=== PATIENT | female | born 1985 | race Caucasian/White ===

== ENCOUNTER 2017-04-30 11:15 | Emergency (ER) | payer MEDICAID ==
[2017-04-30 11:20] VITALS: BP 118/78
[2017-04-30] MEDS ORDERED: cloNIDine 0.1 MG TABLET PO STA (12:27)
[2017-04-30] MEDS ORDERED: LORazepam 2 MG/ML SYRINGE IM STA (12:27)
[2017-04-30] MEDS ORDERED: ONDANSETRON ODT 4 MG TABLET TL STA (12:28)
--- NOTE | 2017-04-30 12:30 | ED Physician Documentation ---
History of Present Illness - Stated complaint Stated Complaint: WITHDRAWAL - Chief complaint Chief Complaint: General - History obtained from History obtained from: Patient - History of Present Illness Timing: How many days ago (2) - Additonal information Additional information: 31-year-old female has been shooting heroin for 1-1/2 years she uses about 1 g per day. She has stopped 2 days ago and she is wanting to discontinue. She has developed some nausea and vomiting and diarrhea beginning early this morning and she was able to eat yesterday. Review of Systems Constitutional: reports: Fatigue, Sweats. denies: Fever, Chills Eyes: denies: Decreased vision Ears: denies: Ear pain Nose: denies: Rhinorrhea / runny nose, Congestion Throat: denies: Sore throat Cardiac: denies: Chest pain / pressure, Palpitations Respiratory: denies: Dyspnea, Cough GI: reports: Abdominal Pain, Nausea, Vomiting, Diarrhea : denies: Dysuria, Frequency Skin: denies: Rash Musculoskeletal: denies: Neck pain, Back pain, Extremity pain Neurologic: reports: Generalized weakness. denies: Focal weakness, Numbness PD PAST MEDICAL HISTORY - Present Medications Home Medications: Ambulatory Orders Medication Instructions Recorded Confirmed Lorazepam [Ativan] 1 - 2 mg PO Q6HR PRN #30 tablet 04/30/17 Ondansetron Odt [Zofran] 4 mg TL Q6H PRN #10 tablet 04/30/17 cloNIDine [Catapres] 0.1 mg PO BID #20 tablet 04/30/17 - Allergies Allergies/Adverse Reactions: Allergies Allergy/AdvReac Type Severity Reaction Status Date / Time Penicillins Allergy Hives Verified 04/30/17 11:20 Sulfa (Sulfonamide Allergy Hives Verified 04/30/17 11:20 Antibiotics) - Social History Does the pt smoke?: Yes Smoking Status: Current every day smoker Does the pt have substance abuse?: Yes Substance Use and Type: Heroin PD ED PE NORMAL - Vitals Vital signs reviewed: Yes (normal ) - General General: Well developed/nourished, Other (The patient appears concerned with publications writer tone. ) - HEENT HEENT: Atraumatic, PERRL, EOMI, Moist mucous membranes - Neck Neck: Supple, no meningeal sign, No bony TTP - Cardiac Cardiac: RRR, No murmur - Respiratory Respiratory: No respiratory distress - Abdomen Abdomen: Soft, Non tender - Back Back: No CVA TTP, No spinal TTP - Derm Derm: Normal color, Warm and dry, No rash - Extremities Extremities: No deformity, No edema - Neuro Neuro: No motor deficit, No sensory deficit - Psych Psych: Normal mood, Normal affect Results - Vitals Vitals: Vital Signs - 24 hr 04/30/17 11:18 Heart Rate 79 Respiratory 16 Rate Blood Pressure 118/78 O2 Saturation 100 Oxygen O2 Source Room air Procedures - IVC sono (time) 1220 Bedside IVC sono: IVC measures (cm) (1.72), IVC collapsed c insp (cm) (0.82), Euvolemia PD MEDICAL DECISION MAKING - ED course Complexity details: reviewed results, re-evaluated patient, considered differential, d/w patient, d/w family ED course: 31 y/o female With a history of heroin use is wanting to stop now and is in the early stages of withdrawal. Here in the emergency department she is administered Ativan 1 mg IM clonidine 0.1 and Zofran 4 mg p.o.By interrogation of the inferior vena cava the patient does not require IV fluids and IV is not begun. Departure - Departure Disposition: 01 Home, Self Care Clinical Impression: Acute narcotic withdrawal Condition: Stable Instructions: ED Withdrawal Narcotic Follow-Up: Your, doctor [Other] Prescriptions: Lorazepam [Ativan] 1 - 2 mg PO Q6HR PRN #30 tablet PRN Reason: withdrawal symptoms cloNIDine [Catapres] 0.1 mg PO BID #20 tablet Ondansetron Odt [Zofran] 4 mg TL Q6H PRN #10 tablet PRN Reason: Nausea / Vomiting
[2017-04-30] MEDS ORDERED: ONDANSETRON ODT 4 MG TABLET ONE (12:46)
[2017-04-30] MEDS ORDERED: LORazepam 2 MG/ML SYRINGE ONE (12:46)
[2017-04-30] MEDS ORDERED: cloNIDine 0.1 MG TABLET ONE (12:47)
== END 2017-04-30 13:05 | disposition home or self-care (01) ==
LOC: ED 11:15
DX: F11.23 Opioid dependence with withdrawal (principal); F17.200 Nicotine dependence, unspecified, uncomplicated
CPT/HCPCS: 96372; 99283; A9270; J2060; Q0162

== ENCOUNTER 2017-07-01 04:13 | Emergency (ER) | payer MEDICAID ==
[2017-07-01 04:25] VITALS: BP 112/46
[2017-07-01] MEDS ORDERED: LIDOCAINE 1% 2 ML VIAL ONE (04:39)
[2017-07-01] MEDS ORDERED: CLINDAMYCIN 150 MG CAPSULE PO STA (04:56)
[2017-07-01] MEDS ORDERED: CLINDAMYCIN 150 MG CAPSULE PO ONE (04:58)
--- NOTE | 2017-07-01 05:01 | ED Physician Documentation ---
PD HPI SKIN - Stated complaint Stated Complaint: FEMALE - Chief complaint Chief Complaint: Wound - History obtained from History obtained from: Patient, Friend - History of Present Illness Timing - onset: How many days ago (4) Timing - duration: Days (4) Timing - details: Gradual onset, Still present Location: RLE Quality / character: Painful, Raised, Swelling, Draining Associated symptoms: Myalgias. No: Fever Contributing factors: No: Recent illness Similar symptoms before: Diagnosis (abscess) Recently seen: Not recently seen - Additional information Additional information: 31-year-old female with a prior history of heroin use has an abscess to her right buttocks and she states this is been draining some foul-smelling yellow pus while she was in the shower yesterday she continues to have pain and swelling. She has not had fever. Review of Systems Constitutional: denies: Fever, Chills, Myalgias Nose: denies: Congestion Respiratory: denies: Cough GI: denies: Vomiting Skin: reports: Lesions Musculoskeletal: reports: Extremity pain, Extremity swelling. denies: Neck pain , Back pain Neurologic: denies: Generalized weakness, Focal weakness, Numbness PD PAST MEDICAL HISTORY - Past Medical History Past Medical History: Yes Endocrine/Autoimmune: Other Musculoskeletal: Other Other Past Medical History: buldging disk, fibromyglia - Past Surgical History Past Surgical History: Yes Ortho: Carpal Tunnel surgery /[employer]: section - Present Medications Home Medications: Ambulatory Orders Medication Instructions Recorded Confirmed Lorazepam [Ativan] 1 - 2 mg PO Q6HR PRN #30 tablet 04/30/17 07/01/17 Ondansetron Odt [Zofran] 4 mg TL Q6H PRN #10 tablet 04/30/17 07/01/17 cloNIDine [Catapres] 0.1 mg PO BID #20 tablet 04/30/17 07/01/17 Clindamycin [Cleocin] 300 mg PO Q6H #28 capsule 07/01/17 - Allergies Allergies/Adverse Reactions: Allergies Allergy/AdvReac Type Severity Reaction Status Date / Time Penicillins Allergy Hives Verified 07/01/17 04:25 Sulfa (Sulfonamide Allergy Hives Verified 07/01/17 04:25 Antibiotics) - Social History Does the pt smoke?: Yes Smoking Status: Current every day smoker Does the pt drink ETOH?: No Does the pt have substance abuse?: No - Immunizations Immunizations are current?: Yes - POLST Patient has POLST: No PD ED PE NORMAL - Vitals Vital signs reviewed: Yes (normal ) - General General: No acute distress, Well developed/nourished - HEENT HEENT: Atraumatic, PERRL - Respiratory Respiratory: No respiratory distress - Derm Derm: Normal color, Warm and dry, No rash - Extremities Extremities: No deformity, Other (in the right gluteal fold there is a firm 4cm erythematous mass without flucutance. The area is very tender. There are no open areas of drainage. The distal n/v is intact. ) - Neuro Neuro: No motor deficit, No sensory deficit - Psych Psych: Normal mood, Normal affect Results - Vitals Vitals: Vital Signs - 24 hr 07/01/17 04:20 Temperature 37.1 C Heart Rate 66 Respiratory 18 Rate Blood Pressure 112/46 L O2 Saturation 97 Oxygen O2 Source Room air Procedures - Bedside sono Bedside sono by EMP: With use of bedside ultrasound the area is examined and there is no area of fluid collection. There are septations consistent with cellulitis. PD MEDICAL DECISION MAKING - ED course Complexity details: reviewed old records, reviewed results, re-evaluated patient , considered differential, d/w patient, d/w family ED course: 31-year-old female with an abscess on her buttock on the right side does not appear to have ripening of her abscess at this point. I discussed with her the ripening phenomena and encouraged her to use a warm compress 2-3 times per day and take her antibiotic. She will return for fluctuance or worsening of symptoms. Departure - Departure Disposition: 01 Home, Self Care Clinical Impression: Abscess Condition: Stable Instructions: ED Staph Infec Abx Tx Only Follow-Up: [facility] [Provider Group] Prescriptions: Clindamycin [Cleocin] 300 mg PO Q6H #28 capsule
[2017-07-01] MEDS ORDERED: HYDROcod/ACET 5/325 Prepack 6 PO ONE ×2 (05:02→05:10)
== END 2017-07-01 05:10 | disposition home or self-care (01) ==
LOC: ED 04:13
DX: L02.31 Cutaneous abscess of buttock (principal); L03.317 Cellulitis of buttock; F17.200 Nicotine dependence, unspecified, uncomplicated
CPT/HCPCS: 99283; A9270

== ENCOUNTER 2017-07-16 15:20 | Emergency (ER) | payer MEDICAID ==
[2017-07-16] MEDS ORDERED: BUFFERED LIDOCAINE 10 ML SYRINGE SUBQ STA (15:45)
--- NOTE | 2017-07-16 15:48 | ED Physician Documentation ---
History of Present Illness - Stated complaint Stated Complaint: VOMITING/SWEATS - Chief complaint Chief Complaint: General - History obtained from History obtained from: Patient, Family - Additonal information Additional information: She has been under a lot of personal stress because of family issues lately. She was seen here 2 weeks ago for an abscess on her buttock, it was draining spontaneously which it no longer is doing. She was on clindamycin which she has completed. Over the last few days the abscess is still there, coming and going, but now she feels generally ill with nausea, headaches and bilateral eye pain, excessive fatigue. Review of Systems Constitutional: reports: Chills, Myalgias, Fatigue, Sweats. denies: Fever Nose: reports: Rhinorrhea / runny nose. denies: Congestion Throat: denies: Sore throat Respiratory: denies: Dyspnea, Cough GI: reports: Nausea, Vomiting. denies: Abdominal Pain, Diarrhea : reports: Control (tubal ligation). 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 - Present Medications Home Medications: Ambulatory Orders Medication Instructions Recorded Confirmed No Known Home Medications [No 07/16/17 07/16/17 Known Home Medications] - Allergies Allergies/Adverse Reactions: Allergies Allergy/AdvReac Type Severity Reaction Status Date / Time Penicillins Allergy Hives Verified 07/16/17 15:30 Sulfa (Sulfonamide Allergy Hives Verified 07/16/17 15:30 Antibiotics) - Social History Does the pt smoke?: Yes Smoking Status: Current every day smoker Does the pt drink ETOH?: No Does the pt have substance abuse?: No - Immunizations Immunizations are current?: Yes - POLST Patient has POLST: No PD ED PE NORMAL - Vitals Vital signs reviewed: Yes - General General: Alert and oriented X 3, No acute distress - HEENT HEENT: PERRL, EOMI, Ears normal, Pharynx benign - Neck Neck: Supple, no meningeal sign, No bony TTP, No adenopathy - Cardiac Cardiac: RRR, No murmur - Respiratory Respiratory: No respiratory distress, Clear bilaterally - Abdomen Abdomen: Normal bowel sounds, Soft, Non tender - Back Back: No CVA TTP, No spinal TTP - Derm Derm: Normal color, Warm and dry, Other (Done with Dina Rush RN, There is a small deep abscess or sebaceous cyst on the crest of the gluteal crease on the right) - Neuro Neuro: Alert and oriented X 3, Normal speech - Psych Psych: Normal mood, Normal affect Results - Vitals Vitals: Vital Signs - 24 hr 07/16/17 07/16/17 15:25 19:11 Temperature 36.4 C L Heart Rate 60 69 Respiratory 15 16 Rate Blood Pressure 113/62 111/61 O2 Saturation 100 100 Oxygen O2 Source Room air - Labs Labs: Laboratory Tests 07/16/17 07/16/17 07/16/17 16:20 16:20 16:20 WBC 5.4 RBC 4.54 Hgb 11.7 L Hct 36.0 L MCV 79.3 L MCH 25.8 L MCHC 32.6 RDW 14.9 Plt Count 236 MPV 7.2 L Neut # Not Reportable Lymph # Not Reportable [place] # Not Reportable Eos # Not Reportable Baso # Not Reportable Absolute Nucleated RBC Not Reportable Total Counted 100 Band Neuts % (Manual) 0 Nucleated RBC % Not Reportable Neutrophils # (Manual) 1.5 Lymphocytes # (Manual) 2.9 Monocytes # (Manual) 0.5 Eosinophils # (Manual) 0.3 Basophils # (Manual) 0.1 Differential Comment MANUAL DIFFERENTIAL Manual Slide Review Indicated Platelet Estimate NORMAL (130-450,000) Platelet Morphology NORMAL APPEARANCE RBC Morph Micro Appear 1+ MICROCYTOSIS Sodium 136 Potassium 4.0 Chloride 104 Carbon Dioxide 23 Anion Gap 9.0 BUN 14 Creatinine 0.6 Estimated GFR (MDRD) 116 Glucose 143 H Calcium 9.1 Total Bilirubin 0.4 AST 361 H ALT 326 H Alkaline Phosphatase 141 H Total Protein 7.4 Albumin 3.4 Globulin 4.0 Albumin/Globulin Ratio 0.9 L Lipase 30 Serum HCG, Qual NEGATIVE Acetaminophen Infectious [place] Assay NEGATIVE 07/16/17 16:20 WBC RBC Hgb Hct MCV MCH MCHC RDW Plt Count MPV Neut # Lymph # [place] # Eos # Baso # Absolute Nucleated RBC Total Counted Band Neuts % (Manual) Nucleated RBC % Neutrophils # (Manual) Lymphocytes # (Manual) Monocytes # (Manual) Eosinophils # (Manual) Basophils # (Manual) Differential Comment Manual Slide Review Platelet Estimate Platelet Morphology RBC Morph Micro Appear Sodium Potassium Chloride Carbon Dioxide Anion Gap BUN Creatinine Estimated GFR (MDRD) Glucose Calcium Total Bilirubin AST ALT Alkaline Phosphatase Total Protein Albumin Globulin Albumin/Globulin Ratio Lipase Serum HCG, Qual Acetaminophen < 10 L Infectious [place] Assay PD MEDICAL DECISION MAKING - ED course ED course: 31-year-old woman with a small abscess on the gluteal crest which actually did not have any pus in it and no systemic symptoms of profound fatigue and headaches. On workup she was found to have elevated liver enzymes of unclear chronicity, she had never been told this before. She does have a history of injection drug use and has never been checked for hepatitis. Her ultrasound did demonstrate a avascular hypoechoic lesion in the pancreatic head. She had been notified that there was an abnormality on the ultrasound and needed further workup and despite initially telling me she was willing to go under this workup. CT was ordered but the patient eloped prior to this being done. Departure - Departure Disposition: 07 Against Medical Advice Clinical Impression: Elevated liver enzymes, Pancreatic mass Fatigue Qualifiers: Fatigue type: unspecified Qualified Code(s): R53.83 - Other fatigue Condition: Stable Discharge Date/Time: 07/16/17 20:09
[2017-07-16] MEDS ORDERED: BUFFERED LIDOCAINE 10 ML SYRINGE ONE (15:52)
[2017-07-16 16:32] LABS: BASOPHILS % (AUTO) 0.8 %; EOSINOPHILS % (AUTO) 5.1 %; HGB - HEMOGLOBIN 11.7 g/dL (12.0-16.0); LYMPHOCYTES % (AUTO) 51.2 %; MEAN CORPUSCULAR HEMOGLOBIN 25.8 pg (27.0-31.0); MEAN CORPUSCULAR HGB CONC 32.6 g/dL (32.0-36.0); MEAN CORPUSCULAR VOLUME 79.3 fL (81.0-99.0); MEAN PLATELET VOLUME 7.2 fL (7.9-10.8); MONOCYTES % (AUTO) 7.5 %; NEUTROPHILS % (AUTO) 35.4 %; RED BLOOD COUNT 4.54 10^6/uL (4.20-5.40); RED CELL DISTRIBUTION WIDTH 14.9 % (12.0-15.0); UNCORRECTED WHITE BLOOD COUNT 5.4 x10^3/uL; WHITE BLOOD COUNT 5.4 x10^3/uL (4.8-10.8)
[2017-07-16 16:37] LABS: BAND NEUTROPHILS % (MANUAL) 0 %
[2017-07-16 16:43] LABS: MONO NEG QC NEGATIVE (Negative); MONO POS QC POSITIVE (Positive)
[2017-07-16 16:54] LABS: ALBUMIN/GLOBULIN RATIO 0.9 (1.0-2.2); BILIRUBIN,TOTAL 0.4 mg/dL (0.2-1.0); BUN - BLOOD UREA NITROGEN 14 mg/dL (6-20); CALCIUM 9.1 mg/dL (8.5-10.3); CARBON DIOXIDE - CO2 23 mmol/L (21-32); CHLORIDE 104 mmol/L (101-111); CREATININE 0.6 mg/dL (0.4-1.0); GFR - MDRD 116 (>89); GLUCOSE 143 mg/dL (70-100); LIPASE 30 U/L (22-51); SODIUM 136 mmol/L (135-145); TOTAL PROTEIN 7.4 g/dL (6.7-8.2)
[2017-07-16 16:55] LABS: BASOPHILS % (MANUAL) 2 %; EOSINOPHILS % (MANUAL) 6 %; LYMPHOCYTES % (MANUAL) 54 %; NEUTROPHILS % (MANUAL) 28 %; TOTAL CELLS COUNTED 100
[2017-07-16 16:57] LABS: NP AUTO DIFFERENTIAL? YES; NP MAN DIFFERENTIAL? NO; PLATELET ESTIMATE, MANUAL NORMAL (130-450,000) (NORMAL); PLATELET MORPHOLOGY NORMAL APPEARANCE (NORMAL)
--- NOTE | 2017-07-16 18:43 | Ultrasound Preliminary Report ---
Exam: US Abdomen Limited IMPRESSION: 1. Fatty liver. 2. No cholelithiasis nor cholecystitis. 3. 2.9 x 2.5 cm avascular hypoechoic lesion in the pancreatic head. Dedicated pancreatic CT protocol should be considered. [facility] SITE ID: [id number]
--- NOTE | 2017-07-16 19:01 | Ultrasound Report ---
EXAM: ABDOMEN ULTRASOUND LIMITED, RUQ EXAM DATE: 07/16/2017 05:56 PM. CLINICAL HISTORY: Elevated liver enzymes. COMPARISON: None. TECHNIQUE: Real-time scanning was performed with static images obtained. FINDINGS: Liver: Uniform increased echogenicity without focal mass lesions. 18.0 cm. Main portal vein flow: Hep atopetal. Gallbladder: Patient just ate a granola bar. Gallbladder is small. No wall thickening, focal tenderne ss, stones nor pericholecystic fluid. Biliary System: CBD measures 6 mm. No intrahepatic or extrahepatic ductal dilatation. Other: No free fluid. 2.9 x 2.5 cm area of uniform avascular decreased echogenicity head of the pancreas. Pancreatic tail n ot visualized. No pancreatic duct dilatation. IMPRESSION: 1. Fatty liver. 2. No cholelithiasis nor cholecystitis. 3. A 2.9 x 2.5 cm avascular hypoechoic lesion in the pancreatic head. Dedicated pancreatic CT protoco l should be considered. [facility] Referring Provider Line: [phone] SITE ID: [id number]
[2017-07-16 19:11] VITALS: BP 111/61
[2017-07-16] MEDS ORDERED: IOPAMIDOL-300 100 ML VIAL ONE (19:27)
== END 2017-07-16 20:09 | disposition left against medical advice (07) ==
LOC: ED 15:20
DX: R74.8 Abnormal levels of other serum enzymes (principal); K86.89 Other specified diseases of pancreas; F17.200 Nicotine dependence, unspecified, uncomplicated
CPT/HCPCS: 36415; 76705; 80053; 80074; 80307; 83690; 84703; 85025; 86308; 99282; 99283